=== PATIENT | female | born 1980 | race Caucasian/White ===

== ENCOUNTER 2019-05-30 07:41 | Emergency (ER) | payer MEDICAID ==
[~2019-05-30] VITALS: Ht 157.5 cm; Wt 95.0 kg
[2019-05-30] MEDS ORDERED: ACETAMINOPHEN WITH CODEINE 300/30MG TABLET PO STA (08:20)
[2019-05-30] MEDS ORDERED: ASPIRIN 81MG TABLET PO ONE (08:30)
[2019-05-30 08:42] LABS: HEMATOCRIT. 38.5 % (36.0-48.0); HEMOGLOBIN. 12.3 g/dL (12.0-16.0); MEAN CORPUSCULAR HEMOGLOBIN 25.3 pg (28.0-32.0); MEAN CORPUSCULAR VOLUME 78.9 fL (81.0-99.0); MEAN PLATELET VOLUME 8.6 fl (7.4-10.4); PLATELET 395 x1000/uL (130-400); RED BLOOD CELL COUNT 4.88 mill/uL (4.2-5.4); RED CELL DISTRIBUTION WIDTH 15.2 % (11.6-14.6)
[2019-05-30 08:44] LABS: CHLORIDE 107 mEq/L (98-107)
[2019-05-30 09:40] LABS: PLATELET ESTIMATE NORMAL
[2019-05-30 09:59] VITALS: BP 128/76
== END 2019-05-30 10:03 | disposition home or self-care (01) ==
LOC: ER 07:41
DX: R07.89 Other chest pain (principal); R03.0 Elevated blood-pressure reading, without diagnosis of hypertension
CPT/HCPCS: 36415; 71045; 80053; 81025; 83880; 84484; 85025; 93005; 99284; Z7610

== ENCOUNTER 2019-06-08 06:53 | Inpatient (IN) | payer MEDICAID ==
[~2019-06-08] VITALS: Ht 152.4 cm; Wt 93.9 kg
[2019-06-08] MEDS ORDERED: MORPHINE SULFATE 4 MG/ML CPJ (NOT FOR IM USE) IV STA (09:26)
[2019-06-08] MEDS ORDERED: ONDANSETRON HCL 4MG/2ML INJ IV STA (09:26)
[2019-06-08 09:54] LABS: CHLORIDE 107 mEq/L (98-107)
[2019-06-08 10:01] LABS: BASOPHILS % 0.9 % (0.0-2.0); EOSINOPHILS % 1.3 % (0.0-5.0); HEMATOCRIT. 40.7 % (36.0-48.0); HEMOGLOBIN. 13.1 g/dL (12.0-16.0); LYMPHOCYTES % 20.8 % (20.0-50.0); MEAN CORPUSCULAR HEMOGLOBIN 25.2 pg (28.0-32.0); MEAN CORPUSCULAR VOLUME 78.5 fL (81.0-99.0); MEAN PLATELET VOLUME 8.6 fl (7.4-10.4); MONOCYTES % 4.7 % (2.0-8.0); NEUTROPHILS % 72.3 % (40.0-76.0); PLATELET 353 x1000/uL (130-400); RED BLOOD CELL COUNT 5.19 mill/uL (4.2-5.4); RED CELL DISTRIBUTION WIDTH 15.7 % (11.6-14.6)
[2019-06-08] MEDS ORDERED: CLONIDINE 0.1MG TABLET PO PRN (13:15)
[2019-06-08] MEDS ORDERED: LORAZEPAM 0.5MG TABLET PO PRN (13:15)
[2019-06-08] MEDS ORDERED: ONDANSETRON HCL 4MG/2ML INJ IV PRN (13:15)
[2019-06-08] MEDS ORDERED: MAGNESIUM/ALUMINUM HYDROXIDE/SIMETHICONE 30ML UDC PO PRN (13:15)
[2019-06-08] MEDS ORDERED: DOCUSATE SODIUM 100MG CAPSULE PO PRN (13:15)
[2019-06-08] MEDS ORDERED: NITROGLYCERIN 0.4MG TABLET SL SL PRN (13:15)
[2019-06-08] MEDS ORDERED: ACETAMINOPHEN 325MG TABLET PO PRN (13:15)
[2019-06-08] MEDS ORDERED: GUAIFENESIN 200MG/10ML SUGAR FREE UDC PO PRN (13:15)
[2019-06-08] MEDS ORDERED: IPRATROPIUM/ALBUTEROL 0.5-3(2.5)MG/3ML NEB NEB PRN (13:15)
[2019-06-08] MEDS ORDERED: ENOXAPARIN 40MG/0.4ML SYR SUBCUT SCH (13:15)
[2019-06-08] MEDS ORDERED: ZOLPIDEM TARTRATE 5MG TABLET PO PRN (13:15)
[2019-06-08 15:50] LABS: CREATINE KINASE 20 IU/L (26-192)
[2019-06-08 15:51] LABS: CREATINE KINASE MB FRACTION < 1.0 ng/mL (0.5-3.6)
[2019-06-08 18:40] VITALS: BP 112/61
[2019-06-08 19:33] VITALS: BP 132/71
[2019-06-08 20:00] VITALS: BP 132/71
[2019-06-08] MEDS: FAMOTIDINE 20MG TABLET PO SCH (20:15)
[2019-06-08] MEDS: KETOROLAC 15MG/ML VIAL IV PRN (20:15)
[2019-06-08] MEDS: ENOXAPARIN 30MG/0.3ML SYR SUBCUT SCH (20:32)
[2019-06-08 23:01] LABS: *AMPHETAMINES SCREEN URINE NEGATIVE (NEGATIVE); *BARBITURATES SCREEN URINE NEGATIVE (NEGATIVE); *BENZODIAZEPINES SCREEN URINE NEGATIVE (NEGATIVE); *COCAINE SCREEN URINE NEGATIVE (NEGATIVE); METHADONE URINE SCREEN NEGATIVE (NEGATIVE)
[2019-06-08 23:02] LABS: CANNABINOID URINE SCREEN NEGATIVE (NEGATIVE); PHENCYCLIDINE URINE SCREEN NEGATIVE (NEGATIVE)
[2019-06-08 23:05] LABS: OPIATES URINE SCREEN PRESUMTIVE POSITIVE (NEGATIVE)
[2019-06-08 23:38] LABS: CREATINE KINASE 18 IU/L (26-192)
[2019-06-08 23:39] LABS: CREATINE KINASE MB FRACTION < 1.0 ng/mL (0.5-3.6)
[2019-06-09] VITALS: BP 114/52
[2019-06-09 04:00] VITALS: BP 108/63
[2019-06-09] MEDS: KETOROLAC 15MG/ML VIAL IV PRN (04:03)
[2019-06-09 08:00] VITALS: BP 126/86
[2019-06-09] MEDS ORDERED: ASPIRIN 325MG EC TABLET PO SCH (09:00)
[2019-06-09] MEDS: ENOXAPARIN 30MG/0.3ML SYR SUBCUT SCH (09:00)
[2019-06-09] MEDS: FAMOTIDINE 20MG TABLET PO SCH (09:15)
[2019-06-09 09:21] VITALS: BP 126/86
== END 2019-06-09 09:48 | disposition home or self-care (01) | DRG 203 ==
LOC: ER 06:53 → 5WST 10:50 → EDBEDREQ 10:53 → EDBEDREQTM 10:53 → ENRESERV 17:37
PROVIDERS: ADMIT Internal Medicine; ATTEND Internal Medicine
DX: R07.89 Other chest pain (principal); D72.829 Elevated white blood cell count, unspecified; F41.9 Anxiety disorder, unspecified; K30 Functional dyspepsia; K59.00 Constipation, unspecified; F43.9 Reaction to severe stress, unspecified
CPT/HCPCS: 36415; 71045; 80061; 80305; 82550; 82553; 83036; 83880; 84484; 93005; 93970; 99285; J1650; J1885; J2270; J2405

== ENCOUNTER 2020-06-28 19:35 | Emergency (ER) | payer SELFPAY ==
[~2020-06-28] VITALS: Ht 154.9 cm; Wt 91.0 kg
[2020-06-29 03:00] VITALS: BP 148/82
[2020-06-29 03:28] LABS: CHLORIDE 107 mEq/L (98-107)
[2020-06-29 03:48] LABS: BASOPHILS % 0.9 % (0.0-2.0); EOSINOPHILS % 0.9 % (0.0-5.0); HEMATOCRIT. 38.4 % (36.0-48.0); HEMOGLOBIN. 12.1 g/dL (12.0-16.0); LYMPHOCYTES % 26.5 % (20.0-50.0); MEAN CORPUSCULAR HEMOGLOBIN 23.5 pg (28.0-32.0); MEAN CORPUSCULAR VOLUME 74.6 fL (81.0-99.0); MEAN PLATELET VOLUME 8.8 fl (7.4-10.4); MONOCYTES % 5.8 % (2.0-8.0); NEUTROPHILS % 65.9 % (40.0-76.0); PLATELET 399 x1000/uL (130-400); RED BLOOD CELL COUNT 5.15 mill/uL (4.2-5.4); RED CELL DISTRIBUTION WIDTH 16.1 % (11.6-14.6)
== END 2020-06-29 04:33 | disposition home or self-care (01) ==
LOC: ER 19:35
DX: R07.89 Other chest pain (principal); R00.2 Palpitations; R51.9 Headache, unspecified
CPT/HCPCS: 36415; 71045; 80053; 84484; 85025; 93005; 99285

== ENCOUNTER 2022-02-21 16:11 | Emergency (ER) | payer SELFPAY ==
[~2022-02-21] VITALS: Ht 154.9 cm; Wt 100.4 kg
[2022-02-21 17:14] LABS: BASOPHILS % 0.6 % (0.0-2.0); EOSINOPHILS % 1.2 % (0.0-5.0); HEMOGLOBIN. 11.1 g/dL (12.0-16.0); MEAN CORPUSCULAR HEMOGLOBIN 24.4 pg (28.0-32.0); MEAN CORPUSCULAR VOLUME 77.2 fL (81.0-99.0); MEAN PLATELET VOLUME 8.9 fl (7.4-10.4); NEUTROPHILS % 74.2 % (40.0-76.0); PLATELET 440 x1000/uL (130-400); RED BLOOD CELL COUNT 4.54 mill/uL (4.2-5.4)
[2022-02-21 17:19] LABS: PROTHROMBIN TIME 10.4 sec (9.6-11.0)
[2022-02-21 17:24] LABS: CHLORIDE 103 mEq/L (98-107)
[2022-02-21 17:36] LABS: ETHANOL BLOOD < 10 mg/dL
[2022-02-21 17:48] LABS: HCG SCREEN NEGATIVE
[2022-02-21 19:41] LABS: CLARITY URINE CLEAR (CLEAR); COLOR URINE YELLOW (YELLOW); KETONES URINE NEGATIVE (NEGATIVE); LEUKOCYTE ESTERASE URINE 1+ (NEGATIVE); NITRITE URINE NEGATIVE (NEGATIVE); OCCULT BLOOD URINE TRACE (NEGATIVE); PROTEIN URINE NEGATIVE (NEGATIVE); SPECIFIC GRAVITY URINE 1.013 (1.005-1.030); UROBILINOGEN URINE 0.2 E.U./dL (0.2-1.0)
[2022-02-21 19:55] LABS: *AMPHETAMINES SCREEN URINE NEGATIVE (NEGATIVE); *BARBITURATES SCREEN URINE NEGATIVE (NEGATIVE); *BENZODIAZEPINES SCREEN URINE NEGATIVE (NEGATIVE); *COCAINE SCREEN URINE NEGATIVE (NEGATIVE); CANNABINOID URINE SCREEN NEGATIVE (NEGATIVE); METHADONE URINE SCREEN NEGATIVE (NEGATIVE); OPIATES URINE SCREEN NEGATIVE (NEGATIVE); PHENCYCLIDINE URINE SCREEN NEGATIVE (NEGATIVE)
[2022-02-21 20:00] VITALS: BP 157/58
[2022-02-21] MEDS ORDERED: CEFP200T13 MT (20:20)
[2022-02-21] MEDS ORDERED: CEFTRIAXONE 1 G PREMIX 50 ML IV ONE (20:30)
== END 2022-02-21 22:01 | disposition home or self-care (01) ==
LOC: ER 16:11
DX: N39.0 Urinary tract infection, site not specified (principal); R51.9 Headache, unspecified; R20.0 Anesthesia of skin; M79.89 Other specified soft tissue disorders; R03.0 Elevated blood-pressure reading, without diagnosis of hypertension
CPT/HCPCS: 36415; 70450; 71045; 80053; 80305; 80320; 81003; 82962; 83690; 83880; 84484; 84703; 85025; 85610; 93005; 93971; 96365; 99285; J0696; G0480

== ENCOUNTER 2022-03-06 16:29 | Emergency (ER) | payer SELFPAY ==
[~2022-03-06] VITALS: Ht 152.4 cm; Wt 96.0 kg
[~2022-03-06 16:29] MED LIST: CEFP200T13 MT
[2022-03-06 17:42] LABS: BASOPHILS % 0.7 % (0.0-2.0); EOSINOPHILS % 0.6 % (0.0-5.0); HEMATOCRIT. 37.5 % (36.0-48.0); HEMOGLOBIN. 11.4 g/dL (12.0-16.0); LYMPHOCYTES % 26.4 % (20.0-50.0); MEAN CORPUSCULAR HEMOGLOBIN 23.9 pg (28.0-32.0); MEAN CORPUSCULAR VOLUME 78.6 fL (81.0-99.0); MEAN PLATELET VOLUME 9.1 fl (7.4-10.4); MONOCYTES % 9.3 % (2.0-8.0); PLATELET 220 x1000/uL (130-400); RED BLOOD CELL COUNT 4.78 mill/uL (4.2-5.4); RED CELL DISTRIBUTION WIDTH 15.7 % (11.6-14.6)
[2022-03-06 17:43] LABS: CHLORIDE 101 mEq/L (98-107)
[2022-03-06 18:00] LABS: HCG SCREEN NEGATIVE
[2022-03-06] MEDS ORDERED: KETOROLAC 15MG/ML VIAL IV ONE (18:15)
[2022-03-06] MEDS ORDERED: METOCLOPRAMIDE HCL 10MG/2ML VIAL IV ONE (18:15)
[2022-03-06] MEDS ORDERED: SODIUM CHLORIDE 0.9% 1,000 ML IV ONE (18:15)
[2022-03-06] MEDS ORDERED: DIPHENHYDRAMINE 50MG/ML VIAL IV ONE (18:15)
[2022-03-06 18:18] LABS: CLARITY URINE CLOUDY (CLEAR); COLOR URINE ORANGE (YELLOW); KETONES URINE 1+ (NEGATIVE); LEUKOCYTE ESTERASE URINE 2+ (NEGATIVE); NITRITE URINE NEGATIVE (NEGATIVE); OCCULT BLOOD URINE 3+ (NEGATIVE); PH URINE 6.5 (4.5-8.0); PROTEIN URINE 2+ (NEGATIVE); SPECIFIC GRAVITY URINE 1.029 (1.005-1.030)
[2022-03-06 18:52] VITALS: BP 132/74
[2022-03-06] MEDS ORDERED: ACETAMINOPHEN 325MG TABLET PO ONE (19:00)
== END 2022-03-06 20:30 | disposition home or self-care (01) ==
LOC: ER 16:29
DX: M79.602 Pain in left arm (principal)
CPT/HCPCS: 36415; 71045; 80053; 81003; 83605; 83690; 83880; 84484; 84703; 85025; 93005; 96374; 96375; 99285; J1200; J1885; J2765; J7030